=== PATIENT | female | born 1995 | race Hispanic/Latino ===

== ENCOUNTER 2019-08-26 12:49 | Outpatient (CLI) | payer OTHER, SELFPAY ==
--- NOTE | ~2019-08-26 | US_ITS ---
EXAMINATION: US breast LT limited HISTORY: Unspecified lump of the left breast at the 9:00 location, history of prior excisional biops y at 9:00 TECHNIQUE: Limited left breast ultrasound is performed. FINDINGS: There is no evidence of focal abnormal cystic or solid mass in the vicinity of the reported palpable abnormality of concern. As described in the clinical history, the previously described bilo bed mass has been removed. IMPRESSION: Interval removal of the previously described bilobed mass at the 9:00 location in the breast without specific sonographic correlate identified for the reported palpable abnormality of concern. Further e valuation at this time should be based on clinical assessment. Continued follow-up physical examinati on is recommended. BI-RADS Category 1: Negative Reviewed, dictated and finalized at location A. NING STRATEGIST IMPRESSION: Interval removal of the previously described bilobed mass at the 9:00 location in the breast without specific sonographic correlate identified for the reporte d palpable abnormality of concern. Further evaluation at this time should be ba sed on clinical assessment. Continued follow-up physical examination is recomme nded. BI-RADS Category 1: Negative
== END 2019-08-26 12:50 | disposition home or self-care (01) ==
LOC: ANHIMG 12:50
PROVIDERS: Visit Provider Student in an Organized Health Care Education/Training Program
DX: N63.0 Unspecified lump in unspecified breast (principal)
CPT/HCPCS: 76642